=== PATIENT | female | born 1990 | race Caucasian/White ===

== ENCOUNTER 2018-02-24 11:00 | Emergency (ER) | payer SELFPAY ==
[2018-02-24 11:25] VITALS: BP 117/70; PULSE 77; TEMP 98.5; BMI 34.8
[2018-02-24] MEDS ORDERED: METOCLOPRAMIDE HCL INJECTION 10 MG/2 ML VIAL IVPB ONE (12:11)
[2018-02-24] MEDS ORDERED: SODIUM CHLORIDE 1,000 ML IV STA (12:12)
--- NOTE | 2018-02-24 12:19 | PDOC ---
History of Present Illness - General Chief Complaint: Headache Stated Complaint: HEADACHES Time Seen by Provider: 02/24/18 11:45 History Source: Patient Exam Limitations: Language Barrier (st helenian. 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 Patient states that the headache started gradually and got more intense over the last 2 weeks. She is tried taking 400 of Motrin a day with minimal relief. Admits to photophobia and phonophobia. Denies lightheadedness, weakness, dizziness, numbness and tingling , gait changes in LOC. Pt. moved to the three [place] ago from [place] Past History - Travel Traveled outside of the country in the last 30 days: No Close contact w/someone who was outside of country & ill: No - Past Medical History Allergies/Adverse Reactions: Allergies Allergy/AdvReac Type Severity Reaction Status Date / Time No Known Allergies Allergy Verified 02/24/18 11:21 Home Medications: Ambulatory Orders Ibuprofen 800 mg PO TID #30 tablet 02/24/18 COPD: No Other medical history: DENIES. - Suicide/Smoking/Psychosocial Hx Smoking History: Never smoked Review of Systems - Review of Systems Able to Perform ROS?: Yes Comments:: 02/24/18 12:12 CONSTITUTIONAL: Absent: fever, chills, diaphoresis, generalized weakness, malaise, loss of appetite HEENT: Absent: rhinorrhea, nasal congestion, throat pain, throat swelling, difficulty swallowing, mouth swelling, ear pain, eye pain, visual Changes CARDIOVASCULAR: Absent: chest pain, loss of consciousness, palpitations, irregular heart rate, peripheral edema RESPIRATORY: Absent: cough, shortness of breath, dyspnea with exertion, orthopnea, wheezing, stridor, hemoptysis GASTROINTESTINAL: Absent: abdominal pain, abdominal distension, nausea, vomiting, diarrhea, constipation, melena, hematochezia GENITOURINARY: Absent: dysuria, frequency, urgency, hesitancy, hematuria, flank pain, genital pain MUSCULOSKELETAL: Absent: myalgia, arthralgia, joint swelling SKIN: Absent: rash, itching, pallor HEMATOLOGIC/IMMUNOLOGIC: Absent: easy bleeding, easy bruising, lymphadenopathy, frequent infections ENDOCRINE: Absent: unexplained weight gain, unexplained weight loss, heat intolerance, cold intolerance NEUROLOGIC: Present: L sided headache, made worse with lights and sound Absent: focal weakness or paresthesias, dizziness, unsteady gait, seizure, mental status changes, bladder or bowel incontinence PSYCHIATRIC: Absent: anxiety, depression, suicidal or homicidal ideation, hallucinations. Is the patient limited Vietnamese proficient: No *Physical Exam - Vital Signs Last Vital Signs Temp Pulse Resp BP Pulse Ox 98.5 F 77 19 117/70 100 02/24/18 11:21 02/24/18 11:21 02/24/18 11:21 02/24/18 11:21 02/24/18 11:21 - Physical Exam Comments: 02/24/18 12:19 GENERAL: Well developed, well nourished. Awake and alert. No acute distress. HEENT: Normocephalic, atraumatic. PERRLA, EOMI. No conjunctival pallor. Sclera are non- icteric. Moist mucous membranes. Oropharynx is clear. NECK: Supple. Full ROM. No JVD. Carotid pulses 2+ and symmetric, without bruits. No thyromegaly. No lymphadenopathy. CARDIOVASCULAR: Regular rate and rhythm. No murmurs, rubs, or gallops. Distal pulses are 2+ and symmetric. PULMONARY: No evidence of respiratory distress. Lungs clear to auscultation bilaterally. No wheezing, rales or rhonchi. ABDOMINAL: Soft. Non-tender. Non-distended. No rebound or guarding. No organomegaly. Normoactive bowel sounds. MUSCULOSKELETAL Normal range of motion at all joints. No bony deformities or tenderness. No CVA tenderness. EXTREMITIES: No cyanosis. No clubbing. No edema. No calf tenderness. SKIN: Warm and dry. Normal capillary refill. No rashes. No jaundice. NEUROLOGICAL: Alert, awake, appropriate. Cranial nerves 2-12 intact. No deficits to light touch and temperature in face, upper extremities and lower extremities. No motor deficits in the in face, upper extremities and lower extremities. Normoreflexic in the upper and lower extremities. Normal speech. Toes are down- going bilaterally. Gait is normal without ataxia. PSYCHIATRIC: Cooperative. Good eye contact. Appropriate mood and affect. Medical Decision Making - Medical Decision Making 02/24/18 12:21 Patient is a 27-year-old female no past medical history who presents emergency department today with 2 weeks of gradually worsening left-sided headache. Patient denies thunderclap-like symptoms and that this is the worst headache of her life. Neuro exam is normal at this time with no gross deficits. Most likely a migraine at this time due to the photo and phonophobia. We'll treat with Reglan and Benadryl. Reevaluate 02/24/18 13:22 Pt. feeling better. No pain after reglan and Benadryl, Will d/c home at this time. Return precautions given. Pt. understands all dc instructions and all questions were answered. *DC/Admit/Observation/Transfer Diagnosis at time of Disposition: Headache Qualifiers: Headache type: unspecified Headache chronicity pattern: acute headache Intractability: not intractable Qualified Code(s): R51 - Headache - Discharge Dispostion Disposition: HOME Condition at time of disposition: Stable Decision to Admit order: No - Referrals Referrals: Tommy Walsh MD [Staff Physician] - - Patient Instructions Printed Discharge Instructions: DI for Headache Additional Instructions: You have a headache. Drink plenty of fluids Please get plenty of rest Please take Motrin 800 mg every 8 hours as needed for pain. Do not exceed taking 3000 mg a day. Follow-up with her primary care doctor this week. Return to the emergency department if you have worsening headache, dizziness, lightheadedness, or have any changes in her symptoms. Tienes un dolor de jessica. Beber mucho lquido Por favor, descansar mucho [place] Motrin 800 mg cada 8 horas segn sea necesario para el dolor. No exceda marino 3000 mg por da. Courtney un seguimiento con nichole mdico de atencin primaria esta semana. Regrese al departamento de emergencias si tiene dolor de jessica, mareos, aturdimiento o cambios en alfonzo sntomas. Print Language: MALIAN - Post Discharge Activity
[2018-02-24] MEDS ORDERED: METOCLOPRAMIDE HCL INJECTION 10 MG/2 ML VIAL ONE (12:24)
== END 2018-02-24 13:32 | disposition home or self-care (01) ==
LOC: JERFT 11:00
PROC: 3E033GC Introduction of Other Therapeutic Substance into Peripheral Vein, Percutaneous Approach (ICD-10-PCS; principal; 2018-02-24)
DX: R51 Headache (principal)
CPT/HCPCS: 99281-25; J7030